=== PATIENT | male | born 1945 | race Caucasian/White ===

== ENCOUNTER → 2016-07-26 | Outpatient (CLI) | payer OTHER, MEDICARE | LOC: BMCIMAGING 12:08 | PROVIDERS: ATTEND Emergency Medicine | DX: M19.041 Primary osteoarthritis, right hand (principal) ==

== ENCOUNTER 2017-08-26 15:14 | Emergency (ER) | payer OTHER, MEDICARE ==
[2017-08-26 15:20] VITALS: BP 126/104
--- NOTE | 2017-08-26 15:42 | EDPHY ---
H & P Stated Complaint: Sent by outpatient psychiatric clinic for evaluation. Time Seen by Provider: 08/26/17 15:41 HPI/ROS: CHIEF COMPLAINT: Worsening depression and anxiety HISTORY OF PRESENT ILLNESS: The patient presents the ED with complaints of worsening depression and anxiety. The patient has a longstanding history of these diagnoses. The patient reports it has been worsening over the past several years in acutely over the past several weeks. He reports restlessness, inability to sleep, weight loss, excessive daytime sleepiness, thoughts of increasing depression and potential thoughts of self-harm without a specific plan. The patient has been trying compulsively over the past several weeks to establish outpatient psychiatric care and has been unsuccessful. The patient was advised by Sudhir Blandon, from the outpatient counseling Center at our hospital to come to the emergency department for possible evaluation for inpatient care. REVIEW OF SYSTEMS: A comprehensive 10 point review of systems is otherwise negative aside from elements mentioned in the history of present illness. Source: Patient Exam Limitations: No limitations - Personal History Current Tetanus Diphtheria and Acellular Pertussis (TDAP): Yes - Medical/Surgical History Hx Asthma: No Hx Chronic Respiratory Disease: No Hx Diabetes: No Hx Cardiac Disease: No Hx Renal Disease: No Hx Cirrhosis: No Hx Alcoholism: No Hx HIV/AIDS: No Hx Splenectomy or Spleen Trauma: No Other PMH: GERD, HTN, Depression. - Social History Smoking Status: Never smoked - Physical Exam Exam: General Appearance: Alert, no distress Eyes: Pupils equal and round no pallor or injection ENT, Mouth: Mucous membranes moist Respiratory: There are no retractions, lungs are clear to auscultation Cardiovascular: Regular rate and rhythm Gastrointestinal: Abdomen is soft and nontender, no masses, bowel sounds normal Neurological: A&O, normal motor function, normal sensory exam, normal cranial nerves Skin: Warm and dry, no rashes Musculoskeletal: Neck is supple nontender Extremities: symmetrical, full range of motion Psychiatric: Endorses symptoms of depression and anxiety. Reports thoughts of suicide without a specific plan. The patient is cooperative. His thought processes linear. No auditory or visual hallucinations reported. Constitutional: Initial Vital Signs Temperature (C) 36.6 C 08/26/17 15:16 Heart Rate 63 08/26/17 15:16 Respiratory Rate 18 08/26/17 15:16 Blood Pressure 126/104 H 08/26/17 15:16 O2 Sat (%) 96 08/26/17 15:16 O2 Delivery Mode Room Air Allergies/Adverse Reactions: No Known Allergies Allergy (Unverified 02/29/16 11:01) Home Medications: Medication Instructions Recorded Atenolol [Tenormin 50 mg (*)] 50 mg PO DAILY 02/26/16 Flurazepam HCl [Dalmane] 15 mg PO HS 02/26/16 Omeprazole 40 mg PO DAILY 02/26/16 PARoxetine HCL [Paroxetine HCl] 30 mg PO DAILY 02/26/16 Simvastatin [Zocor] 40 mg PO HS 02/26/16 buPROPion XL [Wellbutrin 150mg XL] 150 mg PO DAILY 02/26/16 Sennosides/Docusate Sodium 1 - 2 tab PO BID #0 tab 03/13/16 [Senokot-S] Seroquel 100 mg (*) 08/26/17 Medical Decision Making ED Course/Re-evaluation: The patient presents the ED requesting to be seen by psychiatrist to review his current medications for depression and anxiety. The patient reports he has had depression which has been worsening. The patient denies a specific plan. The patient currently states he can contract for safety. The patient is very frustrated at the lack of access to outpatient psychiatry. The patient was offered the opportunity to speak with [facility] about a possible voluntary placement for rapid evaluation of his medications. The patient initially was receptive to this plan however became impatient about having to wait to see the biological technical officer. The patient is accompanied by his who would like to take him home. She does feel as if the patient is safe. The patient, his and myself feel that he does not meet criteria for 72 hr mental health hold. The patient was discharged from the emergency department at 7:00 p.m.. He has been given the contact number for the walk-in clinic. The patient additionally had been given information for the intensive outpatient program at [facility] as well as a telephone number to evaluate for outpatient psychiatric referrals. I did speak with the outpatient program who informed me the current wait time to see a psychiatrist is only 1-2 weeks. The patient did receive 1 mg of Ativan in the emergency department as he was quite anxious about having to wait for prolonged period of time. Differential Diagnosis: Differential diagnosis considered includes depression, anxiety, suicidal ideation - Data Points Laboratory Results: Laboratory Results 08/26/17 16:04 08/26/17 16:04 08/26/17 08/26/17 08/26/17 16:10 16:04 16:04 WBC 7.61 10^3/uL 10^3/uL (3.80-9.50) RBC 4.13 10^6/uL L 10^6/uL (4.40-6.38) Hgb 12.9 g/dL L g/dL (13.7-17.5) Hct 37.9 % L % (40.0-51.0) MCV 91.8 fL fL (81.5-99.8) MCH 31.2 pg pg (27.9-34.1) MCHC 34.0 g/dL g/dL (32.4-36.7) RDW 13.1 % % (11.5-15.2) Plt Count 247 10^3/uL 10^3/uL (150-400) MPV 9.0 fL fL (8.7-11.7) Neut % (Auto) 70.5 % % (39.3-74.2) Lymph % (Auto) 17.7 % % (15.0-45.0) [place] % (Auto) 10.2 % % (4.5-13.0) Eos % (Auto) 0.8 % % (0.6-7.6) Baso % (Auto) 0.5 % % (0.3-1.7) Nucleat RBC Rel Count 0.0 % % (0.0-0.2) Absolute Neuts (auto) 5.36 10^3/uL 10^3/uL (1.70-6.50) Absolute Lymphs (auto) 1.35 10^3/uL 10^3/uL (1.00-3.00) Absolute Monos (auto) 0.78 10^3/uL 10^3/uL (0.30-0.80) Absolute Eos (auto) 0.06 10^3/uL 10^3/uL (0.03-0.40) Absolute Basos (auto) 0.04 10^3/uL 10^3/uL (0.02-0.10) Absolute Nucleated RBC 0.00 10^3/uL 10^3/uL (0-0.01) Immature Gran % 0.3 % % (0.0-1.1) Immature Gran # 0.02 10^3/uL 10^3/uL (0.00-0.10) Sodium 138 mEq/L mEq/L (135-145) Potassium 4.5 mEq/L mEq/L (3.5-5.2) Chloride 105 mEq/L mEq/L (97-110) Carbon Dioxide 24 mEq/l mEq/l (22-31) Anion Gap 9 mEq/L mEq/L (8-16) BUN 15 mg/dL mg/dL (7-23) Creatinine 1.0 mg/dL mg/dL (0.7-1.3) Estimated GFR > 60 Glucose 97 mg/dL mg/dL (70-100) Calcium 9.6 mg/dL mg/dL (8.5-10.4) Urine Opiates Screen NEGATIVE (NEGATIVE) Urine Barbiturates NEGATIVE (NEGATIVE) Ur Phencyclidine Scrn NEGATIVE (NEGATIVE) Ur Amphetamine Screen NEGATIVE (NEGATIVE) U Benzodiazepines Scrn NON-NEGATIVE H (NEGATIVE) Urine Cocaine Screen NEGATIVE (NEGATIVE) U Marijuana (THC) Screen NON-NEGATIVE H (NEGATIVE) Medications Given: Discontinued Medications Lorazepam (Ativan) 1 mg PO EDNOW ONE Stop: 08/26/17 16:42 Last Admin: 08/26/17 16:57 Dose: 1 mg Departure - Departure Disposition: Home, Routine, Self-Care Clinical Impression: Anxiety, Depression Condition: Good Instructions: Depression (ED) Additional Instructions: 1. Please follow-up with the mental health resources provided in the ED today. 2. [facility] does operate a 24/ psychiatric crisis unit located at [facility]. The telephone number for the 24 hour crisis center is [phone]. 3. Please return to the ED if you are feeling suicidal, having thoughts of harming yourself/others or should you feel unsafe or have worsening symptoms. Referrals: Amos Schmitt MD [Primary Care Provider] - As per Instructions
[2017-08-26 16:14] LABS: PLATELET COUNT 247 10^3/uL (150-400)
[2017-08-26] MEDS ORDERED: LORazepam 1 MG TAB ONE (16:38)
[2017-08-26] MEDS ORDERED: LORazepam 1 MG TAB PO ONE (16:41)
== END 2017-08-26 18:55 | disposition home or self-care (01) ==
DX: F41.9 Anxiety disorder, unspecified (principal); F32.9 Major depressive disorder, single episode, unspecified; I10 Essential (primary) hypertension
CPT/HCPCS: 80305

== ENCOUNTER → 2017-09-25 | Outpatient (CLI) | payer OTHER, MEDICARE | LOC: BMCIMAGING 12:40 | PROVIDERS: ATTEND Emergency Medicine | DX: M51.37 Other intervertebral disc degeneration, lumbosacral region (principal); M51.36 Other intervertebral disc degeneration, lumbar region; M25.551 Pain in right hip ==